=== PATIENT | female | born 2005 | race Caucasian/White ===

== ENCOUNTER 2025-02-23 19:35 | Emergency (ER) | payer OTHER, SELFPAY ==
[2025-02-23 19:51] VITALS: BP 147/80; PULSE 71; RESP 16; TEMP 37.2; O2SAT 98
--- NOTE | 2025-02-23 20:47 | ED_ITS ---
HPI - General Adult General Chief complaint: Head Injury/Pain Stated complaint: concussion Time Seen by Provider: 02/23/25 20:21 History of Present Illness HPI narrative: Patients reports a concussion on tuesday while playing rugby, starting to reintroduce screens and increased activity today and started noticing nausea , numbness in her scalp. Denies vision changes or vomiting. 19-year-old young woman presenting to the emergency department with concern of head injury/concussion. Playing rugby 6 days ago. Performed a tackle where she pulled it person over onto her ill-advisedly. There was a 10 minute memory gap. Not known to have loss of consciousness however. She was evaluated the next day and diagnosed with a concussion. Has been limiting screens and then today it beyond 10 occasionally male return to screens experiencing more headache and nausea. Was also some numbness she experienced in the left upper posterior scalp. Dizziness is less. Apparently consulted with a family physician from [facility] in [place] who thought probably would need some imaging with concern of subdural. She has increasing anxious about this possibility. Related Data Allergies Allergy/AdvReac Type Severity Reaction Status Date / Time latex Allergy Verified 02/23/25 19:59 Review of Systems Status of ROS: Reports: 6 or more systems reviewed and unremarkable except as noted in History and below [facility] Social History Smoking Status: Never smoker Do you use any of these nicotine containing products: None Second hand tobacco smoke exposure: No How often do you have a drink containing alcohol: never AUDIT-C Alcohol total score: 0 Non-prescribed substance use: denies use Exam Narrative: Exam Narrative: Pleasant. NAD. Mild photophobia. Good energy. Well built. Head looks to be atraumatic. Neck is supple and nontender. Cranial nerves 2-12 intact. Pupils are brisk and equal. No nystagmus. Extraocular movements were full and only with discomfort on accommodation. Normal xjefj-ab-yiuet. Toe heel walking without difficulty. Speaking fluidly, easily. Palm sized bruise on outer upper right lower leg. Const: Vital Signs, click to edit/add: Vital Signs - 24 hr 02/23/25 19:51 Temperature 99.0 F Pulse Rate [Left P ulse Oximeter] 71 Respiratory Rate 16 Blood Pressure [Ri ght Upper Arm] 147/80 H Pulse Oximetry 98 Oxygen Delivery Me thod Room Air Documenting provider has reviewed patient's vital signs: yes Course Vital Signs Vital signs: Initial Vital Signs Temperature 99.0 F 02/23/25 19:51 Temperature Source Temporal Artery Scan 02/23/25 19:51 Pulse Rate 71 02/23/25 19:51 Respiratory Rate 16 02/23/25 19:51 Blood Pressure 147/80 H 02/23/25 19:51 Blood Pressure Mean 102 02/23/25 19:51 Blood Pressure Position Sitting 02/23/25 19:51 Pulse Oximetry 98 02/23/25 19:51 Oxygen Delivery Method Room Air 02/23/25 19:51 Vital Signs Temperature 99.0 F 02/23/25 19:51 Pulse Rate 71 02/23/25 19:51 Respiratory Rate 16 02/23/25 19:51 Blood Pressure 147/80 H 02/23/25 19:51 Pulse Oximetry 98 02/23/25 19:51 Oxygen Delivery Method Room Air 02/23/25 19:51 Temperature 99.0 F 02/23/25 19:51 Pulse Rate 71 02/23/25 19:51 Respiratory Rate 16 02/23/25 19:51 Blood Pressure 147/80 H 02/23/25 19:51 Pulse Oximetry 98 02/23/25 19:51 Oxygen Delivery Method Room Air 02/23/25 19:51 Medical Decision Making MDM Narrative Medical decision making narrative: Does appear to be having some concussive symptoms. I do not think this is necessarily out of the ordinary. I think it is unlikely that there is a head bleed. I do not appreciate any findings to suggest bony injury either. I did offer reassurance and recommending close follow-up. I think at this point though head imaging would be helpful to move forward. CT head independently reviewed by me looks to be without acute abnormality. Appears relieved. Does have care providers to advise in concussion treatment/protocols. See patient discharge plan for further discussion Discharge Plan Discharge Clinical Impression: Concussion Patient Disposition: Home w/ Parent or Adult Condition: Stable Additional Instructions: Hopefully you feel a little relieved. Please follow-up for post concussive treatment guidance. Focus on getting quality rest and stay well-hydrated. Follow Up/Referrals: Provider,Not a Local [Primary Care Provider] - Stand Alone Forms: [employer] Info Instructions
--- NOTE | 2025-02-23 21:01 | CRLHL7_ITS ---
For Patients: As a result of the Cures Act, medical imaging exams and procedure reports are released immediately into your electronic medical record. You may view this report before your referring provider. If you have questions, please contact your health care provider. Indication: Closed head injury, patient concerned about subdural Technique: Noncontrast CT through the head with multiplanar reformats Comparison: None Findings: Brain: No acute hemorrhage. No acute infarct. No significant mass effect or midline shift. No gross evidence of a mass lesion or cerebral edema. Ventricles: No acute abnormality appreciated. Orbits, sinuses, mastoids: No acute abnormality appreciated. Trace sinus disease. Calvarium and soft tissues: No acute abnormality appreciated. Impression: No acute abnormality appreciated. Please note that all CT scans at this facility use dose modulation, iterative reconstruction, and/or weight-based dosing when appropriate to reduce radiation dose to as low as reasonably achievable. Dictated by Bernardo Nam MD @ 02/23/2025 9:22:07 PM (Electronically Signed)
--- OUTSIDE RECORDS SUMMARY | 2025-02-23 21:18 | XMS_ITS | Encounter Summary ---
Author Organization [facility] Address [address] [place] [address] Phone [phone] Care Team Providers Care Events Solutions Consultant Name Role Phone Maxine Will MD Primary Care Provider [phone]- [phone] Reason for Visit * Reason Onset Date Comments Forms Request 09/13/2019 Dr. Blackmon/Nazanin andrade Encounter Details Date Type Department Care Team ([facility] Contact Info) Description 09/13/2019 Telephone [facility] [address] [place] [address] Ruslan Arellano, [address] [place] [address] Forms Request (Dr. Blackmon/Susanna) Social History Tobacco Use Types Packs/Day Years Used Date Smoking Tobacco: Never Smokeless Tobacco: Never Alcohol Use Standard Drinks/Week Comments No 0 (1 standard drink = 0.6 oz pur e alcohol) PHQ-2 Answer Date Recorded PHQ-2 Score 5 08/27/2018 Comments No Sex and Gender Information Value Date Recorded Sex Assigned at Female 05/23/2022 9:59 PM EDT Legal Sex Female 6:12 AM EST Gender Identity Female 05/23/2022 9:59 PM EDT Sexual Orientation Queer 05/23/2022 9: 59 PM EDT documented as of this encounter Miscellaneous Notes * Telephone Encounter - Frank Chang, MONET - 09/17/2019 8:55 AM EST Placed in bin at the front with patients brothers waiting to be picked up. * Telephone Encounter - Casie Blackmon MD - 09/14/2019 6:15 PM EST signed * Telephone Encounter - Susanna Jo LPN - 09/13/2019 2:57 PM EST Form filled out for provider to review and sign. Placed in PCP's in box. * Telephone Encounter - Frank Chang OSA - 09/13/2019 1:37 PM EST Mother dropping off learners permit to be completed by pcp. Placed form in bin behind nurse station to be completed. Please call patient mother when form has been completed. documented in this encounter Plan of Treatment Upcoming Encounters Date Type Department Care Team (Late st Contact Info) Description 06/25/2025 10:00 AM EDT Office Visit Gynecology/Obstetrics [facility] [address] [place] [address] Peggy Perez PA-C [address] [place] [address] 06/28/2025 1:30 PM EDT Office Visit Gynecology/Obstetrics [facility] [address] [place] [address] Haleigh Graves PA-C [address] [place] [address] 07/17/2025 1:40 PM EDT Office Visit [facility] [address] [address] Maxine Will MD [address] [address] documented as of this encounter Visit Diagnoses Not on filedocumented in this encounter Care Teams Events Solutions Consultant Relationship Specialty Start Date End Date Maxine Will MD [address] [address] PCP - General Family Medicine 02/13/25 documented as of this encounter
--- OUTSIDE RECORDS SUMMARY | 2025-02-23 21:18 | XMS_ITS | Clinical Summary ---
Author Organization [facility] Address [address] [place] [address] Care Team Providers Care Lipcoat Sprayer Name Role Phone Clinic, [employer] [facility] Primary Care Pro vider Allergies Active Allergy Reactions Criticality Noted Date Comments Latex Rash Medium 03/22/2014 rash Medications No known medications Active Problems Problem Noted Date Diagnosed Date Irritable bowel syndrome wit h both constipation and diarrhea 05/15/[address] 05/24/2022 Overview (05/15/2024): Exp: 03/26/2024 [id number] Lot [id number] Resolved Problems Problem Noted Date Diagnosed Date Resolved Date Goiter 08/11/2016 05/15/2024 Encounters Date Type Department Care Team Description 02/21/2025 Travel from Last 3 Months Immunizations Immunization Administration Dates Next Due COVID-19 vaccine (Futuris.tk NTech 30mcg/0.3mL) PF, MDV 09/23/2021 DTaP 09/26/2007,12/22/2004 [id number] (Pediarix) 03/18/2004,01/22/2004,0 2003 HIB PRP-OMP (PedvaxHIB) 2003 HIB PRP-T (ActHIB,Hiberix) 09/23/2004,03/18/2004 ,01/22/2004 HPV 9 (Gardasil 9) 03/08/2016,06/18/2015 Hepatitis A (Peds) 09/26/2007,10/05/2006 Hepatitis B (Peds) 2003 Inactivated Polio Vaccine 11/25/2009 Influenza A (H1N1), Inactiva maria victoria (Age >=3 Years) 09/23/2009,08/24/2009 Influenza Virus, Unspecified 07/13/2021, 07/18/2020,07/21/2019,08/09,09/22/2017,08/11/2016,06/18/2015 ,07/15/2014,07/26/2013,07/24/2012,06/25,12/18/2010,07/28/2009, 8,08/24/2007,08/01/2006,08/02/2005, Influenza, Injectable, Mdck, Quadrivalent, W/preservative 08/16/2022 Influenza,CCIIV4 PRESERV FREE 08/08/2023 MENINGOCOCCAL VACCINE 2 VIAL [id number] (MENVEO) 07/18/2020,03/24/2015 MMR, Unspecified 10/01/2008,09/23/2004 Pneumococcal Conj 20-valent (Prevnar 20) 01/09/2024 Pneumococcal conj 7-Valent (Prevnar 7) 1 2003,07/01/2004,01/22/2004,11/21 Tdap 03/24/2015 Tuberculin (PPD) 02/20/2018 Social History Tobacco Use Types Packs/Day Years Used Date Smoking Tobacco: Never Smokeless Tobacco: Never Tobacco Cessation:Counseling Given: Not Answered Alcohol Use Standard Drinks/Week Comments Yes 0 (1 standard drink = 0.6 oz pur e alcohol) rarely PHQ-2 Answer Date Recorded PHQ-2 TOTAL SCORE 0 05/15/2024 Social Connections Answer Date Recorded Do you often feel lonely or isolated from those around you? 0 05/15/2024 Financial Resource Strain Answer Date R ecorded Difficulty of Paying Living Expenses 3 05/15/2024 Difficulty of Paying Living Expenses Not on file 05/15/2024 Food Insecurity Answer Date Recorded Do you worry your food will run out before you are able to buy more? 1 05/15/2024 Transportation Needs Answer Date Record ed Does lack of transportation keep you from medica l appointments? 1 05/15/2024 Does lack of transportation keep you from work, meetings or getting things that you need? 1 05/15/2024 Housing Stability Answer Date Recorded What is your housing situation today? 1 05/15/2024 Utilities Answer Date Recorded Do you have trouble paying f or utilities (for example, heat, electricity, water, phone)? 1 05/15/2024 Comments No Sex and Gender Information Value Date Recorded Sex Assigned at Not on file Legal Sex Female 10:37 AM CDT Gender Identity Not on file Sexual Orientation Not on file Obstetrics History Last Filed Vital Signs Vital Sign Reading Time Taken Comments Blood Pressure 110/62 05/15/2024 7:39 AM CDT Pulse 72 05/15/2024 7:39 AM CDT Temperature - - Respiratory Rate 17 05/15/2024 7:39 AM CDT Oxygen Saturation - - Inhaled Oxygen Concentration - - Weight 87.2 kg (192 lb 4.8 oz) 05/15/2024 7:39 A M CDT Height 169 cm (5' 6.54) 05/15/2024 7:39 AM CDT Body Mass Index 30.54 05/15/2024 7:39 AM CDT Plan of Treatment Upcoming Encounters Date Type Department Care Team (Late st Contact Info) Description 02/25/2025 2:40 PM CDT Office Visit [facility] [address] [place] [address] Primitivo Roque MD [address] [place] [address] Health Maintenance Due Date Last Done Comments HIV for age 15-65 2018 Chlamydia for age 16-24 2019 Hepatitis C screening for age 18-79 2021 COVID-19 vaccine series ( season) 2024 08/08/2023, 08/16/2022, 09/23/2021, Additional history exists Pap test for age 21-65 2024 Tetanus booster 03/24/2025 03/24/2015 BMI (ht and wt on same day) for age 18+ 05/15/2025 05/15/2024 Depression screening for age 12+ 05/15/2025 05/15/2024 Influenza Vaccine (Season Ended) 2025 08/08/2023, 08/16/2022, 07/13/2021, Additional history exists Tdap Completed 03/24/2015 HPV series for age 9-26 Completed 03/08/2016, 06/18 Meningococcal series for age 11-21 Completed 07/18/2020, 03/24/2015 Pneumococcal series for age 6-49 Aged Out 01/09/2024, 09/23/2004, 07/01/2004, Additional history exists No longer eligible based on patient's age to complete this topic Insurance [employer] Care Teams Lipcoat Sprayer Relationship Specialty Start Date End Date Clinic, [address] [address] PCP - General 05/15/24
--- OUTSIDE RECORDS SUMMARY | 2025-02-23 21:18 | XMS_ITS | Encounter Summary ---
Author Organization [facility] Address [address] [place] [address] Phone [phone] Care Team Providers Care Answering Service Operator Name Role Phone Maxine Will MD Primary Care Provider [phone]- [phone] Reason for Visit * Reason Onset Date Comments Appointment Canceled 09/30/2020 rescheduled Encounter Details Date Type Department Care Team ([facility] st Contact Info) Description 09/30/2020 [facility] [address] [place] [address] Casie Blackmon MD Appointment Canceled (rescheduled ) Social History Tobacco Use Types Packs/Day Years Used Date Smoking Tobacco: Never Smokeless Tobacco: Never Alcohol Use Standard Drinks/Week Comments No 0 (1 standard drink = 0.6 oz pur e alcohol) PHQ-2 Answer Date Recorded PHQ-2 Score 4 07/18/2020 Hunger Vital Sign Answer Date Recorded Worried About Running Out of Food in the Last Ye ar Never true 07/18/2020 Ran Out of Food in the Last Year Never true 07/18/2020 Comments No Sex and Gender Information Value Date Recorded Sex Assigned at Female 05/23/2022 9:59 PM EDT Legal Sex Female 6:12 AM EST Gender Identity Female 05/23/2022 9:59 PM EDT Sexual Orientation Queer 05/23/2022 9: 59 PM EDT documented as of this encounter Miscellaneous Notes * Telephone Encounter - Frank Chang OSA - 09/30/2020 2:55 PM EST Spoke to patients mother in regards to the appointment that has been canceled on 10/20/[address] Blackmon. Patient has been rescheduled. documented in this encounter Plan of Treatment Upcoming Encounters Date Type Department Care Team (Late st Contact Info) Description 06/25/2025 10:00 AM EDT Office Visit Gynecology/Obstetrics [facility] [address] [place] [address] Peggy Perez PA-C [address] [place] [phone] 06/28/2025 1:30 PM EDT Office Visit Gynecology/Obstetrics [facility] [address] [place] [address] Haleigh Graves PA-C [address] [place] [phone] 07/17/2025 1:40 PM EDT Office Visit Family Practice/Pediatrics, [employer] [address] [address] Maxine Will MD [address] [address] documented as of this encounter Visit Diagnoses Not on filedocumented in this encounter Care Teams Answering Service Operator Relationship Specialty Start Date End Date Maxine Will MD [address] [address] PCP - General Family Medicine 02/13/25 documented as of this encounter
--- OUTSIDE RECORDS SUMMARY | 2025-02-23 21:18 | XMS_ITS | Encounter Summary ---
Author Organization [facility] Address [address] [place] [address] Phone [phone] Care Team Providers Care Prototype Model Maker Name Role Phone Maxine Will MD Primary Care Provider +1- [phone] Reason for Visit * Reason Onset Date Comments Appointment 10/15/2020 Encounter Details Date Type Department Care Team ([facility] Contact Info) Description 10/15/2020 Telephone Family Practice/Pediatrics[address] [address] Casie Blackmon MD Appointment Social History Tobacco Use Types Packs/Day Years [...] Telephone Encounter - Frank Chang OSA - 10/15/2020 3:43 PM EST MyG sent to patient to schedule 3 month follow up as a Televideo appointment. documented in this encounter Plan of Treatment Upcoming Encounters Date Type Department Care Team (Late st Contact Info) Description 06/25/2025 10:00 AM EDT Office Visit Gynecology/Obstetrics [facility] [address] [place] [address] Peggy Perez PA-C [address] [place] [address] 06/28/2025 1:30 PM EDT Office Visit Gynecology/Obstetrics [facility] [address] [place] [address] Haleigh Graves PA-C [address] [place] [phone] 07/17/2025 1:40 PM EDT Office Visit Family Practice/Pediatrics, [place] [address] [address] Maxine Will MD [address] [address] documented as of this encounter Visit Diagnoses Not on filedocumented in this encounter Care Teams Prototype Model Maker Relationship Specialty Start Date End Date Maxine Will MD [address] [address] PCP - General Family Medicine 02/13/25 documented as of this encounter
--- OUTSIDE RECORDS SUMMARY | 2025-02-23 21:18 | XMS_ITS | Encounter Summary ---
Author Organization [facility] Address [address] [place] [address] Phone [phone] Care Team Providers Care Utility Sales Representative Name Role Phone Maxine Will MD Primary Care Provider +1- [phone] Reason for Visit * Reason Onset Date Comments Appointment 02/18/2021 Encounter Details Date Type Department Care Team ([facility] Contact Info) Description 02/18/2021 Telephone Family Practice/Pediatrics[address] [address] Casie Blackmon MD Appointment Social History Tobacco [...] encounter Miscellaneous Notes * Telephone Encounter - Casie Blackmon MD - 02/18/2021 4:52 PM EDT Okay to wait to 04/01 for everything. * Telephone Encounter - Frank Chang OSA - 02/18/2021 4:[address] Blackmon-patient is due for follow up on 04/01/2021 with you. I am not able to get the 4 week follow up scheduled until 03/24/[address] Ruby. Is it okay for patient to wait until 04/01/2021 for everything? Please advise. Thank you! * Telephone Encounter - Frank Chang OSA - 02/18/2021 3:58 PM EDT MyG sent to patient to schedule a 4 week follow up. documented in this encounter Plan of Treatment Upcoming Encounters Date Type Department Care Team (Late st Contact Info) Description 06/25/2025 10:00 AM EDT Office Visit Gynecology/Obstetrics [facility] [address] [place] [address] Peggy Perez PA-C [address] [place] [phone] 06/28/2025 1:30 PM EDT Office Visit Gynecology/Obstetrics [facility] [address] [place] [address] Haleigh Graves PA-C [address] [place] [address] 07/17/2025 1:40 PM EDT Office Visit [facility] [address] [facility] [place] [address] Maxine Will MD [address] [address] documented as of this encounter Visit Diagnoses Not on filedocumented in this encounter Care Teams Utility Sales Representative Relationship Specialty Start Date End Date Maxine Will MD [facility] [address] [address] PCP - General Family Medicine 02/13/25 documented as of this encounter
--- OUTSIDE RECORDS SUMMARY | 2025-02-23 21:18 | XMS_ITS | Clinical Summary ---
Author Organization [facility] Address [address] [place] [address] Phone Care Team Providers Care Apiculture Teacher Name Role Phone Maxine Will MD Primary Care Provider [phone] Allergies Active Allergy Reactions Criticality Noted Date Comments Latex Rash Medium 03/22/2014 rash Medications Polyethylene Glycol 3350 17 GM/SCOOP Oral Powder (MiraLax)Indicati ons:Alternating constipation and diarrhea Dissolve one heaping tablespoon in 8 ounces of water or juice. Add additional 1 tablespoon every 2-3 days as needed until 1-3 easy to pass bm daily 255 g 1 1 Active Active Problems Problem Noted Date Diagnosed Date Nexplanon in place 05/24/2022 Overview (05/24/2022): Exp: 03/26/2024 [id number] Lot [id number] Asthma in remission 02/28/2018 Goiter 08/11/2016 PERSONAL HISTORY OF EXPOSURE TO LEAD 2003 Resolved Problems Problem Noted Date Diagnosed Date Resolved Date Intermittent asthma with rel iever use up to twice per week 09/13/2012 02/28/2018 Overview (09/13/2012): Rare need for inhaler UTI - UNCOMPLICATED (G) 07/25/2007 05/0 05/2018 ADVANCE DIRECTIVE INFORMATION 07/27/2005 08/27/2024 Overview (07/27/2005): Not applicable (under age of 18) Respiratory symptoms 06/23/2004 018 Overview (07/26/2019): ICD-10 update of inactive term INFANT 35 week twin 2003 05/20/2011 Immunizations Name Administration Dates Next Due COVID-19 mRNA, LNP-s, No Pre serve, 2-Dose Series (Pfizer) 09/23/2021,02/04/2021,01/14/2021 DTaP Dipth/Tet/Acell Pertussis (Infanrix), Peds 09/26/2007,12/22/2004 XEnJ-CikB-CIG 03/18/2004,01/22/2004,2003 H1N1 2008 Influenza, IM 09/23/2009,08/24/2009 HIB PRP-OMP, 3 dose (Pedvax) 2003 HIB PRP-T, 4 Dose, PF, IM (H iberix, ActHib) 09/23/2004,03/18/2004,01/22/2004 HPV Vaccine, 9-Valent 03/08/2016,06/18/2015 Hepatitis A, Ped/Adol., 18 y ear and below, 2-Dose 09/26/2007,10/05/2006 Hepatitis B, 0-19 yrs 2003 IPV - Polio Virus Vaccine (Inact) 11/25/2009 MMR - Measles/Mumps/Rubella Vaccine 10/01/2008,1 2003 Meningococcal Conjugate Vacc ine (Menactra/Menveo) 03/24/2015 Meningococcal MCV4O Conjugat e Vaccine (Menveo) 07/18/2020 PPD 02/20/2018 Pneumococcal Conjugate Vacci ne, 20-valent ([id number]) 01/09/2024 Pneumococcal Conjugate Vacci ne, 7 Valent 09/23/2004,07/01/2004,01/22/2004,11/21 Seasonal Influenza Vac., MDV , IM, 0.5 mL (Fluzone) 06/18/2015,07/15/2014,07/26/2013,07/24,07/22/2011,12/18/2010,07/28/2009 ,08/29/2008,08/24/2007 Seasonal Influenza, PF, 6 M & above, IM , (FluLaval or Fluzone) 07/13/2021,07/18/2020,07/21/2019,08/09,09/22/2017 Seasonal Influenza, Quadriva lent, No Preserve, IM 08/11/2016 Seasonal Influenza, Trivalen t, (IIV3), PF, (Fluzone) 08/01/2006,08/02/2005,08/10/2004 TDAP (age 10 and older)(Boostrix) 03/24/2015 Varicella Vaccine (Chicken Pox) 10/01/2008,09/23 Family History Medical History Relation Name Comments Allergies Father cat Anxiety Disorder Father Gastro-intestinal disorder Father c holecystectomy Migraines Father Allergies Mother crab Anxiety Disorder Mother resolved Irritable Bowel Syndrome Mother res olved Eczema Sister Heart murmur Sister benign anxiety Sister Relation Name Status Comments Brother 1 Alive Brother 2 Alive Father Alive Grandfather (Maternal) Alive Grandfather (Paternal) Alive Grandmother (Maternal) Alive Grandmother (Paternal) Alive Mother Alive Sister Social History Tobacco Use Types Packs/Day Years Used Date Smoking Tobacco: Never Smokeless Tobacco: Never Alcohol Use Standard Drinks/Week Comments Never 0 (1 standard drink = 0.6 oz pur e alcohol) PHQ-2 Answer Date Recorded PHQ Adult Total Score 0 11/30/2021 Hunger Vital Sign Answer Date Recorded Within the past 12 months, y ou worried that your food would run out before you got the money to buy more. Never true 01/08/20 24 Within the past 12 months, t he food you bought just didn't last and you didn't have money to get more. Never true 01/08/2024 Childcare Answer Date Recorded Do you feel overwhelmed with taking care of a child, family member or friend? No 01/08/2024 Does your family need help f inding childcare? (Household - for ages 0-17 years) Not on file 01/08/2024 Clothing Answer Date Recorded Have you been unable to get clothing when it was really needed? No 01/08/2024 Is your family able to get c lothes or diapers when needed? (Household - for ages 0-17 years) Not on file 01/08/2024 Personal Safety Answer Date Recorded Do you feel unsafe or have concerns for your saf ety? No 01/08/2024 Do you have concerns for you r family's safety? (Household - for ages 0-17 years) Not on file 01/08/2024 Utilities Answer Date Recorded Do you have trouble paying y our heating, water, or electric bill? No 01/08/2024 Is your family able to pay t he heat, water, or electric bill? (Household - for ages 0-17 years) Not on file 01/08/2024 Does your family have access to good internet? (Household - for ages 0-17 years) Not on file 01/08/2024 Employment Status Answer Date Recorded Are you unemployed or without regular income? No 01/08/2024 Does the household have a re gular source of income? (Household - for ages 0-17 years) Not on file 01/08/2024 Social Connections Answer Date Recorded How often do you feel lonely or isolated from th ose around you? Rarely 01/08/2024 Financial Resource Strain Answer Date R ecorded Do you have any trouble payi ng for your medications, or do you think you might in the future? No 01/08/2024 Does your family have troubl e paying for medicine? (Household - for ages 0-17 years) Not on file 01/08/2024 Transportation Needs Answer Date Record ed READ ONLY Do you have troubl e getting a ride to medical visits or work? Never True 01/08/2024 Does your family have a hard time getting a ride to doctors visits? (Household - for ages 0-17 years) Not on file 01/08/2024 Has lack of transportation k ept you from medical appointments, meetings, work, or from getting things needed for daily living? Check all that apply. (Adult - for ages 18 years and over) Not on file 01/08/2024 Do you (or your family) have trouble finding or paying for a ride (transportation)? (Household - for ages 0-17 years) Not on file 01/08/2024 Housing Stability Answer Date Recorded Do you currently live in a s helter or have no steady place to sleep at night? No 01/08/2024 READ ONLY Do you think you a re at risk of becoming homeless? No 01/08/2024 Does your family worry about paying for your home or becoming homeless? (Household - for ages 0-17 years) Not on file 0 01/08/2024 Are you homeless or worried that you might be in the future? (Adult - for ages 18 years and over) Not on file Are you (or your family) verna eless or worried that you might be in the future? (Household - for ages 0-17 years) Not on file Food Insecurity Answer Date Recorded Do you need food for this week? No 01/08/2024 Are you able to get enough f ood for your family? (Household - for ages 0-17 years) Not on file 01/08/2024 Does your family need food t his week? (Household - for ages 0-17 years) Not on file 01/08/2024 Do you always have enough fo od for your family? (Household - for ages 0-17 years) Not on file 01/08/2024 Food Insecurity Answer Date Recorded Within the past 12 months, y ou worried that your food would run out before you got the money to buy more. Never true 01/08/20 24 Within the past 12 months, t he food you bought just didn't last and you didn't have money to get more. Never true 01/08/2024 Do you need food for this week? No 01/08/2024 Comments No Sex and Gender Information Value Date Recorded Sex Assigned at Female 05/23/2022 9:59 PM EDT Legal Sex Female 6:12 AM EST Gender Identity Female 05/23/2022 9:59 PM EDT Sexual Orientation Queer 05/23/2022 9: 59 PM EDT Last Filed Vital Signs Vital Sign Reading Time Taken Comments Blood Pressure 112/70 01/09/2024 9:49 AM EDT Pulse 68 01/09/2024 9:49 AM EDT Temperature 36.7 C (98 F) 01/09/2024 9:49 AM EDT Respiratory Rate 20 01/09/2024 9:49 AM EDT Oxygen Saturation 99% 01/09/2024 9:49 AM EDT Inhaled Oxygen Concentration - - Weight 81.6 kg (180 lb) 01/09/2024 9:49 AM EDT Height 165.4 cm (5' 5.1) 01/09/2024 9:49 AM EDT Body Mass Index 29.86 01/09/2024 9:49 AM EDT Plan of Treatment Upcoming Encounters Date Type Department Care Team (Late st Contact Info) Description 06/25/2025 10:00 AM EDT Office Visit Gynecology/Obstetrics [facility] [address] [place], [place] [id number] Peggy Perez PA-C [address] [place] [address] 06/28/2025 1:30 PM EDT Office Visit Gynecology/Obstetrics [facility] [address] [facility] [place] [address] Haleigh Graves PA-C [address] [place] [address] 07/17/2025 1:40 PM EDT Office Visit Family Practice/Pediatrics, [place] [address] [address] Maxine Will MD [address] [address] Health Maintenance Due Date Last Done Comments Depression Screening 2015 Meningitis B Vaccine (Bexsero/Trumemba) (1 of 2 - Standard) 2019 COVID-19 Vaccine (5 - 2023-2 5 season) 2024 08/08/2023, 09/23/2021, 02/04/2021, Additional history exists Pap Smear 2024 Gonorrhea / Chlamydia Screen 01/08/2025, 10/11/2022, 11/30/2021, Additional history exists Yearly Wellness Visit 01/08/2025 01/09/2024 , 10/11/2022, 11/30/2021, Additional history exists DTap/Tdap Vaccines (7 - Td o r Tdap) 03/24/2025 03/24/2015, 09/26/2007, 12/22/2004, Additional history exists Influenza Vaccine (FLU shot) (Season Ended) 2025 08/11/2023, 08/16/2022, 08/16/2022, Additional history exists Hepatitis B Vaccine Completed 03/18/2004, 01/22/2004, 2003, Additional history exists HPV (Gardasil) Vaccine Completed 03/08/2016, 2014 MENINGOCOCCAL (MENACTRA/MENVEO) Completed 07/18/2020, 03/24/2015, 03/24/2015 Pneumococcal Vaccine: Pediat rics (0 to 5 Years) and At-Risk Patients (6 to 18 Years and 19+ Years) Completed 01/09/2024 Medical Devices Not on file Procedures Procedure Name Priority Date/Time Associated Diagnosis Comments CHLAMYDIA TRACHOMATIS AND NEISSERIA GONORRHOEAE, AMPLIFIED PROBE Routine 01/09/2024 1:20 PM EDT Special screening examination for chlamydial disease from Last 3 Months or Most Recently Relevant to Health Maintenance Results * CHLAMYDIA TRACHOMATIS AND NEISSERIA GONORRHOEAE, AMPLIFIED PROBE (01/09/2024 1:20 PM EDT) Chlamydia Trachomatis Result Negative Negative 01/10/2024 12:24 PM EDT [facility] Comment:No Chlamydia trachom atis detected by it applications analyst-mediated nucleic acid amplification. Neisseria Gonorrhoeae Result Negative Negative 01/10/2024 12:24 PM EDT [facility] Comment:No Neisseria gonorrh oeae detected by it applications analyst-mediated nucleic acid amplification. Urine Urine specimen / Unknown Non-blood Collection / Unknown 01/09/2024 1:20 PM EDT 01/09/2024 1:20 PM EDT us Maxine Will MD LAB MICRO - GENERAL ORDERA BLES Final Result [facility] [address], [place] [id number] from Last 3 Months or Most Recently Relevant to Health Maintenance Care Teams Apiculture Teacher Relationship Specialty Start Date End Date Maxine Will MD [facility] [address] [place] [id number] PCP - General Family Medicine 02/13/25
== END 2025-02-23 21:53 | disposition home or self-care (01) ==
PROVIDERS: Emergency Provider Family Medicine
DX: S06.0X0A Concussion without loss of consciousness, initial encounter (principal); Y93.63 Activity, rugby
CPT/HCPCS: 70450; 99283; 99284